=== PATIENT | female | born 1990 | race Two or more races ===

== ENCOUNTER 2016-05-24 11:26 | Emergency (ER) | payer OTHER ==
[2016-05-24] MEDS ORDERED: ASPIRIN 81 MG TABLET, CHEWABLE PO ONE (11:37)
--- NOTE | 2016-05-24 11:43 | ER Document Report ---
ED Medical Screen (RME) - General Stated Complaint: CHEST PAINS/SHORTNESS OF BREATH Time seen by provider: 11:39 Mode of Arrival: Ambulatory Information source: Patient Notes: 26-year-old female presents to ED for shortness of breath and chest pain. States that the chest pain has been off and on all week. Earlier in the week she said the chest pain was in the center yesterday the chest pain was on the left and felt like somebody had punched her. And today when she was sitting she felt like she couldn't breathe the chest pain was very bad that she took a deep breath and that she could breathe better. 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 States she also has numbness of the left arm and other places of her body. Has a history of asthma but her Advair and rescue inhaler have not helped. I have greeted and performed a rapid initial assessment of this patient. A comprehensive ED assessment and evaluation of the patient, analysis of test results and completion of medical decision making process will be conducted by an additional ED providers. - Related Data Allergies/Adverse Reactions: doxycycline Allergy (Verified 05/24/16 11:38) nitrofurantoin [From Macrobid] Allergy (Verified 05/24/16 11:38) Sulfa (Sulfonamide Antibiotics) Allergy (Verified 05/24/16 11:38) Physical Exam - Vital signs Vitals: Temp Pulse Resp BP Pulse Ox 98.7 F 74 18 176/80 H 99 05/24/16 11:05/24/16 11:05/24/16 11:05/24/16 11:29 05/24/16 11:29 Course - Vital Signs Vital signs: Temp Pulse Resp BP Pulse Ox 98.7 F 74 18 176/80 H 99 05/24/16 11:29 05/24/16 11:29 05/24/16 11:29 05/24/16 11:29 05/24/16 11:29
[2016-05-24 12:10] LABS: ABSOLUTE BASOPHILS # (AUTO) 0.1 10^3/uL (0.0-0.2); ABSOLUTE EOSINOPHILS # (AUTO) 0.1 10^3/uL (0.0-0.6); ABSOLUTE MONOCYTES (AUTO) 0.3 10^3/uL (0.1-1.4); ABSOLUTE NEUT (AUTO) 3.1 10^3/uL (1.7-8.2); BASOPHILS % (AUTO) 1.1 % (0-2); EOSINOPHILS % (AUTO) 2.1 % (0-6); HEMATOCRIT 43.1 % (36.0-47.0); HEMOGLOBIN 14.6 g/dL (12.0-15.5); HGB HCT DIFFERENCE 0.7; LYMPHOCYTES % (AUTO) 35.3 % (13-45); MEAN CORPUSCULAR HEMOGLOBIN 29.1 pg (27.0-33.4); MEAN CORPUSCULAR HGB CONC 33.9 g/dL (32.0-36.0); MEAN CORPUSCULAR VOLUME 86 fl (80-97); MONOCYTES % (AUTO) 6.1 % (3-13); RED BLOOD COUNT 5.01 10^6/uL (3.72-5.28); RED CELL DISTRIBUTION WIDTH 14.3 % (11.5-14.0); SEGMENTED NEUTROPHILS % (AUTO) 55.4 % (42-78); WHITE BLOOD COUNT 5.6 10^3/uL (4.0-10.5)
[2016-05-24 12:43] LABS: ALANINE AMINOTRANSFERASE 21 U/L (9-52); ALBUMIN 4.9 g/dL (3.5-5.0); ALKALINE PHOSPHATASE 56 U/L (38-126); ANION GAP 17 (5-19); ASPARTATE AMINO TRANSFERASE 22 U/L (14-36); BILIRUBIN,DIRECT 0.3 mg/dL (0.0-0.4); BILIRUBIN,TOTAL 1.4 mg/dL (0.2-1.3); BLOOD UREA NITROGEN 14 mg/dL (7-20); CALCIUM 10.7 mg/dL (8.4-10.2); CARBON DIOXIDE 22 mmol/L (22-30); CHLORIDE 105 mmol/L (98-107); CREATINE KINASE 86 U/L (30-135); CREATININE RESULT 0.74 mg/dL (0.52-1.25); GLUCOSE 118 mg/dL (75-110); MAGNESIUM 2.1 mg/dL (1.6-2.3); POTASSIUM 4.5 mmol/L (3.6-5.0); SODIUM 144.1 mmol/L (137-145); TOTAL PROTEIN 8.4 g/dL (6.3-8.2)
[2016-05-24 12:47] LABS: ADD ON TESTING BLD IN LAB ACKNOWLEDGE
[2016-05-24 12:57] LABS: CREATINE KINASE MB < 0.22 ng/mL (<4.55); TROPONIN I < 0.012 ng/mL
--- NOTE | 2016-05-24 12:57 | ER Document Report ---
ED Cardiac - General Chief Complaint: Chest Pain Stated Complaint: CHEST PAINS/SHORTNESS OF BREATH Mode of Arrival: Ambulatory Information source: Patient Notes: Patient reports a 10 day history of shortness of breath off and on with chest pain off and on for the past 5 days. Patient states that when she has the pain is sharp and shooting in nature. Patient does report some sinus congestion today. Patient denies any nausea or vomiting. Patient also reports random episodes of varying body parts that occasionally will be numb, but states she's had this off and on for years. Patient denies any family history of early heart disease or any personal history of heart disease. TRAVEL OUTSIDE OF THE [place] IN LAST 30 DAYS: No - HPI Patient complains to provider of: Chest pain, Shortness of breath Was the onset of pain: Sudden Chest pain location: Substernal Quality of pain: Sharp Severity now: None Severity at worst: Moderate Pain level currently: Denies Chest pain precipitating factors: At Rest Cardiac risk factors: denies: Diabetes, Hypertension, Smoker, + Family history, Dyslipidemia, Hx [place] Positive cardiac history: No Associated symptoms: Shortness of breath. denies: Abdominal pain, Back pain, Jaw pain, Nausea/vomiting Exacerbated by: Denies Relieved by: Nothing Similar symptoms previously: No Recently seen / treated by doctor: No - Related Data Allergies/Adverse Reactions: doxycycline Allergy (Verified 05/24/16 11:38) nitrofurantoin [From Macrobid] Allergy (Verified 05/24/16 11:38) Sulfa (Sulfonamide Antibiotics) Allergy (Verified 05/24/16 11:38) Past Medical History - General Information source: Patient Last Menstrual Period: 05/23/2016 - Social History Smoking Status: Never Smoker Chew tobacco use (# tins/day): No Frequency of alcohol use: None Drug Abuse: None Occupation: hvac maintenance technician Family History: Reviewed & Not Pertinent Patient has suicidal ideation: No Patient has homicidal ideation: No Pulmonary Medical History: Reports: Hx Asthma Renal/ Medical History: Denies: Hx Peritoneal Dialysis GI Medical History: Reports: Hx Gastroesophageal Reflux Disease Psychiatric Medical History: Reports: Hx Anxiety Surgical Hx: Negative - Immunizations Hx Diphtheria, Pertussis, Tetanus Vaccination: Yes Review of Systems - Review of Systems Constitutional: No symptoms reported. denies: Fever, Recent illness EENT: Nose congestion Cardiovascular: Chest pain Respiratory: Short of breath. denies: Cough, Sputum Gastrointestinal: No symptoms reported. denies: Abdominal pain, Nausea, Vomiting Genitourinary: Flank pain. denies: Dysuria, Hematuria Female Genitourinary: No symptoms reported Musculoskeletal: Back pain Skin: No symptoms reported Hematologic/Lymphatic: No symptoms reported Neurological/Psychological: No symptoms reported Physical Exam - Vital signs Vitals: Temp Pulse Resp BP Pulse Ox 98.7 F 74 18 176/80 H 99 05/24/16 11:29 05/24/16 11:29 05/24/16 11:29 05/24/16 11:29 05/24/16 11:29 - General General appearance: Appears well, Alert In distress: None - HEENT Head: Normocephalic, Atraumatic Eyes: Normal Nasal: Normal Mouth/Lips: Normal Mucous membranes: Normal Neck: Normal, Supple. No: Lymphadenopathy - Respiratory Respiratory status: No respiratory distress Chest status: Tender. No: Pain with cough Breath sounds: Normal. No: Rales, Rhonchi, Stridor, Wheezing Chest palpation: Tender - Cardiovascular Rhythm: Regular Heart sounds: S1 appreciated, S2 appreciated Murmur: No - Abdominal Inspection: Normal Distension: No distension Bowel sounds: Normal Tenderness: Nontender Organomegaly: No organomegaly - Back Back: CVA tenderness - Extremities General upper extremity: Normal inspection, Normal strength General lower extremity: Normal inspection, Normal strength - Neurological Neuro grossly intact: Yes Cognition: Normal [place] Coma Scale Eye Opening: Spontaneous [place] Coma Scale Verbal: Oriented [place] Coma Scale Motor: Obeys Commands [place] Coma Scale Total: 15 - Psychological Associated symptoms: Normal affect, Normal mood - Skin Skin Temperature: Warm Skin Moisture: Dry Skin Color: Normal Course - Re-evaluation Re-evalutation: 05/24/16 13:[address] Nieto regarding patient presentation and exam findings. No additional testing recommended. 05/24/16 13:45 The patient has atypical chest pain as the patient's chest pain is not suggestive of pulmonary embolus, cardiac ischemia, aortic dissection, or other serious etiology. Given the extremely low risk of these diagnoses for the test in evaluation for these possibilities does not appear to be indicated at this time. Patient has been instructed to return if the symptoms worsen or change in any way. Patient's heart score 0. 05/24/16 15:21 Patient continues without any chest pain this time. alarm security or surveillance monitor normal sinus rhythm in the 60s. Patient without any shortness of breath. Discussed worsening signs or symptoms that patient should return to medially for. Patient verbalized understanding and agrees with plan of care. Patient denies any dysuria symptoms. - Vital Signs Vital signs: Temp Pulse Resp BP Pulse Ox 98.7 F 74 18 131/87 H 100 05/24/16 11:29 05/24/16 11:29 05/24/16 15:20 05/24/16 15:20 05/24/16 15:20 - Laboratory Result Diagrams: 05/24/16 11:53 05/24/16 11:53 Laboratory results interpreted by me: 05/24/16 05/24/16 05/24/16 11:53 11:53 14:10 RDW 14.3 H Glucose 118 H Calcium 10.7 H Total Bilirubin 1.4 H Total Protein 8.4 H Urine Blood SMALL H 05/24/16 15:22 Labs- Entire Visit 05/24/16 05/24/16 05/24/16 11:53 11:53 11:53 WBC 5.6 RBC 5.01 Hgb 14.6 Hct 43.1 MCV 86 MCH 29.1 MCHC 33.9 RDW 14.3 H Plt Count 251 Seg Neutrophils % 55.4 Lymphocytes % 35.3 Monocytes % 6.1 Eosinophils % 2.1 Basophils % 1.1 Absolute Neutrophils 3.1 Absolute Lymphocytes 2.0 Absolute Monocytes 0.3 Absolute Eosinophils 0.1 Absolute Basophils 0.1 Sodium 144.1 Potassium 4.5 Chloride 105 Carbon Dioxide 22 Anion Gap 17 BUN 14 Creatinine 0.74 Est GFR ( Amer) > 60 Est GFR (Non-Af Amer) > 60 Glucose 118 H Calcium 10.7 H Magnesium 2.1 Total Bilirubin 1.4 H Direct Bilirubin 0.3 Indirect Bilirubin Not Reportable Neonat Total Bilirubin Not Reportable AST 22 ALT 21 Alkaline Phosphatase 56 Creatine Kinase 86 CK-MB (CK-2) < 0.22 Troponin I < 0.012 Total Protein 8.4 H Albumin 4.9 Lipase Serum HCG, Qual Urine Color Urine Appearance Urine pH Ur Specific Banks Urine Protein Urine Glucose (UA) Urine Ketones Urine Blood Urine Nitrite Urine Bilirubin Urine Urobilinogen Ur Leukocyte Esterase Urine WBC (Auto) Urine RBC (Auto) Squamous Epi Cells Auto Urine Ascorbic Acid 05/24/16 05/24/16 05/24/16 11:53 11:53 14:10 WBC RBC Hgb Hct MCV MCH MCHC RDW Plt Count Seg Neutrophils % Lymphocytes % Monocytes % Eosinophils % Basophils % Absolute Neutrophils Absolute Lymphocytes Absolute Monocytes Absolute Eosinophils Absolute Basophils Sodium Potassium Chloride Carbon Dioxide Anion Gap BUN Creatinine Est GFR ( Amer) Est GFR (Non-Af Amer) Glucose Calcium Magnesium Total Bilirubin Direct Bilirubin Indirect Bilirubin Neonat Total Bilirubin AST ALT Alkaline Phosphatase Creatine Kinase CK-MB (CK-2) Troponin I Total Protein Albumin Lipase 156.7 Serum HCG, Qual NEGATIVE Urine Color STRAW Urine Appearance CLEAR Urine pH 7.0 Ur Specific [place] 1.005 Urine Protein NEGATIVE Urine Glucose (UA) NEGATIVE Urine Ketones NEGATIVE Urine Blood SMALL H Urine Nitrite NEGATIVE Urine Bilirubin NEGATIVE Urine Urobilinogen NEGATIVE Ur Leukocyte Esterase NEGATIVE Urine WBC (Auto) 0 Urine RBC (Auto) 0 Squamous Epi Cells Auto <1 Urine Ascorbic Acid NEGATIVE 05/24/16 18:37 - Diagnostic Test Radiology reviewed: Reports reviewed - EKG Interpretation by Ms EKG shows normal: Sinus rhythm Rate: Normal Discharge - Discharge Clinical Impression: Flank pain Chest pain Qualifiers: Chest pain type: unspecified Qualified Code(s): R07.9 - Chest pain, unspecified Condition: Stable Disposition: HOME, SELF-CARE Instructions: Chest Pain of Unclear Cause ([facility]), Reflux Disease (GERD) ([facility]), Flank Pain ([facility]) Additional Instructions: Return immediately for any new or worsening symptoms Followup with your primary care provider, call tomorrow to make a followup appointment Follow up with a boatbuilder apprentice wood for further evaluation of your chest pain Prescriptions: Naproxen [Naprosyn 250 Nmg Tablet] 1 tab PO BID #14 tablet Omeprazole Magnesium [Prilosec Otc] 20 mg PO DAILY #15 tablet. Sucralfacatia [Carafate 1 gm Tablet] 1 gm PO ACHS PRN #40 tablet PRN Reason: Forms: Return to Work Referrals: [facility] [Provider Group] - Follow up tomorrow COLEMAN BOLDEN MD [ACTIVE STAFF] - Follow up in 3-5 days
[2016-05-24 13:04] LABS: LIPASE 156.7 U/L (23-300)
[2016-05-24 14:41] LABS: APPEARANCE,URINE CLEAR; BILIRUBIN,URINE NEGATIVE (NEGATIVE); GLUCOSE, URINE NEGATIVE (NEGATIVE); KETONES,URINE NEGATIVE (NEGATIVE); LEUKOCYTE ESTERASE,URINE NEGATIVE (NEGATIVE); NITRITE,URINE NEGATIVE (NEGATIVE); PROTEIN,URINE NEGATIVE (NEGATIVE); URINE SPECIFIC GRAVITY 1.005; UROBILINOGEN,URINE NEGATIVE mg/dL (<2.0)
[2016-05-24 15:31] VITALS: BP 131/87
--- NOTE | 2016-05-24 20:45 | EKG REPORT ---
SEVERITY:- NORMAL ECG - SINUS RHYTHM : Confirmed by: Toni Rodriguez 24-May-2016 20:44:48
== END 2016-05-24 15:38 | disposition home or self-care (01) ==
LOC: ER 11:26
DX: R07.9 Chest pain, unspecified (principal); R10.9 Unspecified abdominal pain; R06.02 Shortness of breath
CPT/HCPCS: 36415; 71020; 80053; 81001; 82550; 82553; 83690; 83735; 84484; 84703; 85025; 93005; 93010; 99285

== ENCOUNTER 2017-03-05 09:00 | Outpatient (CLI) | payer OTHER ==
[2017-03-05 09:50] LABS: ABSOLUTE EOSINOPHILS # (AUTO) 0.2 10^3/uL (0.0-0.6); ABSOLUTE LYMPHOCYTES (AUTO) 1.9 10^3/uL (0.5-4.7); ABSOLUTE MONOCYTES (AUTO) 0.6 10^3/uL (0.1-1.4); ABSOLUTE NEUT (AUTO) 4.2 10^3/uL (1.7-8.2); BASOPHILS % (AUTO) 0.7 % (0-2); EOSINOPHILS % (AUTO) 3.4 % (0-6); HEMOGLOBIN 11.1 g/dL (12.0-15.5); LYMPHOCYTES % (AUTO) 27.7 % (13-45); MEAN CORPUSCULAR HEMOGLOBIN 23.5 pg (27.0-33.4); MEAN CORPUSCULAR HGB CONC 31.7 g/dL (32.0-36.0); MEAN CORPUSCULAR VOLUME 74 fl (80-97); MONOCYTES % (AUTO) 8.4 % (3-13); PLATELET COUNT 215 10^3/uL (150-450); RED BLOOD COUNT 4.72 10^6/uL (3.72-5.28); RED CELL DISTRIBUTION WIDTH 19.5 % (11.5-14.0); SEGMENTED NEUTROPHILS % (AUTO) 59.8 % (42-78); TOTAL CELLS COUNTED % (AUTO) 100 %
[2017-03-05 09:52] LABS: APPEARANCE,URINE CLEAR; BILIRUBIN,URINE NEGATIVE (NEGATIVE); COLOR,URINE STRAW; GLUCOSE, URINE NEGATIVE (NEGATIVE); KETONES,URINE NEGATIVE (NEGATIVE); LEUKOCYTE ESTERASE,URINE NEGATIVE (NEGATIVE); NITRITE,URINE NEGATIVE (NEGATIVE); PROTEIN,URINE NEGATIVE (NEGATIVE); URINE SPECIFIC GRAVITY 1.006; UROBILINOGEN,URINE NEGATIVE mg/dL (<2.0)
[2017-03-05 10:03] LABS: URINE AMPHETAMINES SCREEN NEGATIVE; URINE BARBITURATES SCREEN NEGATIVE; URINE BENZODIAZEPINES SCREEN NEGATIVE; URINE COCAINE SCREEN NEGATIVE; URINE MARIJUANA (THC) SCREEN NEGATIVE; URINE METHADONE SCREEN NEGATIVE; URINE PHENCYCLIDINE SCREEN NEGATIVE
[2017-03-05 10:08] LABS: ALANINE AMINOTRANSFERASE 19 U/L (9-52); ALBUMIN 3.6 g/dL (3.5-5.0); ALKALINE PHOSPHATASE 168 U/L (38-126); ANION GAP 10 (5-19); ASPARTATE AMINO TRANSFERASE 23 U/L (14-36); BILIRUBIN,DIRECT 0.2 mg/dL (0.0-0.4); BILIRUBIN,TOTAL 0.4 mg/dL (0.2-1.3); BLOOD UREA NITROGEN 11 mg/dL (7-20); CARBON DIOXIDE 20 mmol/L (22-30); CHLORIDE 107 mmol/L (98-107); GLUCOSE 79 mg/dL (75-110); LDH 444 U/L (313-618); POTASSIUM 4.1 mmol/L (3.6-5.0); SODIUM 137.1 mmol/L (137-145); TOTAL PROTEIN 6.4 g/dL (6.3-8.2); URIC ACID 3.6 mg/dL (2.5-6.2)
[2017-03-05 10:11] LABS: UR PRO/CREAT RATIO RESULT 0.3 mg/mg (0.0-0.2); URINE CREATININE 51.9 mg/dL (16-327); URINE PROTEIN 16.9 mg/dL (<12)
== END 2017-03-05 10:30 | disposition home or self-care (01) ==
LOC: LC 09:00
PROVIDERS: ATTEND Obstetrics & Gynecology
PROC: 4A1HXCZ Monitoring of Products of Conception, Cardiac Rate, External Approach (ICD-10-PCS; principal; 2017-03-05)
DX: O47.1 False labor at or after 37 completed weeks of gestation (principal); Z3A.38 38 weeks gestation of pregnancy
CPT/HCPCS: 36415; 59025; 80053; 80307; 81001; 82570; 83615; 84156; 84550; 85025

== ENCOUNTER 2017-03-06 13:50 | Outpatient (CLI) | payer OTHER | END 2017-03-06 15:25 | disposition home or self-care (01) | LOC: LC 13:50 | PROVIDERS: ATTEND Advanced Practice Midwife | PROC: 4A1HXCZ Monitoring of Products of Conception, Cardiac Rate, External Approach (ICD-10-PCS; principal; 2017-03-06) | DX: O12.13 Gestational proteinuria, third trimester (principal); Z3A.38 38 weeks gestation of pregnancy | CPT/HCPCS: 59025 ==

== ENCOUNTER → 2017-03-06 | Outpatient (CLI) | payer OTHER ==
[2017-03-06 15:09] LABS: 24 HOUR URINE PROTEIN RESULT 198 mg/day (42-225); URINE PROTEIN 15.2 mg/dL (<12)
== END ==
LOC: LAB 13:48
PROVIDERS: ATTEND Advanced Practice Midwife
DX: O12.10 Gestational proteinuria, unspecified trimester (principal)
CPT/HCPCS: 84156

== ENCOUNTER 2017-03-12 08:43 | Outpatient (CLI) | payer OTHER ==
--- NOTE | 2017-03-12 09:41 | Non Stress Test Report ---
Non Stress Test Datetime Report Generated by CPN: 03/12/2017 09:41 DEMOGRAPHIC EGA NST: 39.4 INDICATION Indication for Study: Ordered by Provider MONITORING Monitor Explained: Monitor Explained; Test Explained; Patient Verbalized Understanding Time on Monitor: 03/12/2017 09:00 Time off Monitor: 03/12/2017 09:36 NST Duration: 36 NST INTERVENTIONS NST Interventions: PO Hydration Physician Notified NST: C Caldwell CNM BABY A: [id number] BABY A Movement : Present Contraction Frequency : rare FHR Baseline : 130 Accelerations : 15X15 Decelerations : None Variability : Moderate 6-25bpm NST Review: Meets Criteria for Reactive NST NST Review and Verified By : Tyrone Cruz RNC NST Results: Reactive NST REPORT Report Trigger: Send Report
[2017-03-12 10:20] LABS: APPEARANCE,URINE CLOUDY; BILIRUBIN,URINE NEGATIVE (NEGATIVE); COLOR,URINE YELLOW; GLUCOSE, URINE NEGATIVE (NEGATIVE); KETONES,URINE NEGATIVE (NEGATIVE); LEUKOCYTE ESTERASE,URINE NEGATIVE (NEGATIVE); NITRITE,URINE NEGATIVE (NEGATIVE); PROTEIN,URINE NEGATIVE (NEGATIVE); UROBILINOGEN,URINE NEGATIVE mg/dL (<2.0)
[2017-03-12 10:35] LABS: ALANINE AMINOTRANSFERASE 23 U/L (9-52); ALBUMIN 3.4 g/dL (3.5-5.0); ALKALINE PHOSPHATASE 165 U/L (38-126); ANION GAP 9 (5-19); ASPARTATE AMINO TRANSFERASE 27 U/L (14-36); BILIRUBIN,DIRECT 0.2 mg/dL (0.0-0.4); BILIRUBIN,TOTAL 0.5 mg/dL (0.2-1.3); BLOOD UREA NITROGEN 13 mg/dL (7-20); CALCIUM 9.9 mg/dL (8.4-10.2); CARBON DIOXIDE 22 mmol/L (22-30); CHLORIDE 108 mmol/L (98-107); GLUCOSE 69 mg/dL (75-110); POTASSIUM 4.3 mmol/L (3.6-5.0); SODIUM 138.8 mmol/L (137-145); TOTAL PROTEIN 6.1 g/dL (6.3-8.2)
[2017-03-12 10:38] LABS: URINE AMPHETAMINES SCREEN NEGATIVE; URINE BARBITURATES SCREEN NEGATIVE; URINE BENZODIAZEPINES SCREEN NEGATIVE; URINE COCAINE SCREEN NEGATIVE; URINE MARIJUANA (THC) SCREEN NEGATIVE; URINE METHADONE SCREEN NEGATIVE; URINE PHENCYCLIDINE SCREEN NEGATIVE
== END 2017-03-12 12:53 | disposition home or self-care (01) ==
LOC: LC 08:43
PROVIDERS: ATTEND Student in an Organized Health Care Education/Training Program
PROC: 4A1HXCZ Monitoring of Products of Conception, Cardiac Rate, External Approach (ICD-10-PCS; principal; 2017-03-12)
DX: O36.8130 Decreased fetal movements, third trimester, not applicable or unspecified (principal); Z3A.39 39 weeks gestation of pregnancy
CPT/HCPCS: 36415; 59025; 80053; 80307; 81005; 82239

== ENCOUNTER 2017-03-14 15:11 | Inpatient (IN) | payer OTHER ==
[2017-03-14 15:36] LABS: AMNISURE (ROM) POSITIVE (NEGATIVE); APPEARANCE,URINE CLEAR; BILIRUBIN,URINE NEGATIVE (NEGATIVE); COLOR,URINE STRAW; GLUCOSE, URINE NEGATIVE (NEGATIVE); KETONES,URINE NEGATIVE (NEGATIVE); LEUKOCYTE ESTERASE,URINE NEGATIVE (NEGATIVE); NITRITE,URINE NEGATIVE (NEGATIVE); PROTEIN,URINE NEGATIVE (NEGATIVE); URINE SPECIFIC GRAVITY 1.003; UROBILINOGEN,URINE NEGATIVE mg/dL (<2.0)
[2017-03-14] MEDS ORDERED: RINGERS SOLUTION,LACTATED 300 ML IV ONE (15:39)
[2017-03-14 15:54] LABS: URINE AMPHETAMINES SCREEN NEGATIVE; URINE BARBITURATES SCREEN NEGATIVE; URINE BENZODIAZEPINES SCREEN NEGATIVE; URINE COCAINE SCREEN NEGATIVE; URINE MARIJUANA (THC) SCREEN NEGATIVE; URINE METHADONE SCREEN NEGATIVE; URINE PHENCYCLIDINE SCREEN NEGATIVE
[2017-03-14 16:06] LABS: ABSOLUTE EOSINOPHILS # (AUTO) 0.1 10^3/uL (0.0-0.6); ABSOLUTE LYMPHOCYTES (AUTO) 1.9 10^3/uL (0.5-4.7); ABSOLUTE MONOCYTES (AUTO) 0.6 10^3/uL (0.1-1.4); ABSOLUTE NEUT (AUTO) 3.6 10^3/uL (1.7-8.2); BASOPHILS % (AUTO) 0.8 % (0-2); EOSINOPHILS % (AUTO) 1.9 % (0-6); HEMATOCRIT 34.9 % (36.0-47.0); LYMPHOCYTES % (AUTO) 30.1 % (13-45); MEAN CORPUSCULAR HEMOGLOBIN 23.5 pg (27.0-33.4); MEAN CORPUSCULAR HGB CONC 31.6 g/dL (32.0-36.0); MEAN CORPUSCULAR VOLUME 74 fl (80-97); MONOCYTES % (AUTO) 9.3 % (3-13); PLATELET COUNT 241 10^3/uL (150-450); RED BLOOD COUNT 4.69 10^6/uL (3.72-5.28); RED CELL DISTRIBUTION WIDTH 20.3 % (11.5-14.0); SEGMENTED NEUTROPHILS % (AUTO) 57.9 % (42-78); TOTAL CELLS COUNTED % (AUTO) 100 %; WHITE BLOOD COUNT 6.3 10^3/uL (4.0-10.5)
[2017-03-14] MEDS ORDERED: OXYTOCIN/NORMAL SALINE 20 UNIT/1,000 ML RTUINJ IV PRN (16:36)
[2017-03-14] MEDS ORDERED: MISOPROSTOL 0.2 MG TABLET ONE (18:03)
[2017-03-14] MEDS ORDERED: LIDOCAINE 1% INJ-PF (10 MG/ML) 30 ML SDV ONE (18:03)
[2017-03-14] MEDS ORDERED: OXYTOCIN/NORMAL SALINE 20 UNIT/1,000 ML RTUINJ ONE (18:03)
[2017-03-14] MEDS: RINGERS SOLUTION,LACTATED 1,000 ML IV PRN (18:10)
[2017-03-14] MEDS ORDERED: MAG HYDROX/AL HYDROX/SIMETH SUSP 30 ML UDCUP ONE (19:50)
[2017-03-14] MEDS ORDERED: MAG HYDROX/AL HYDROX/SIMETH SUSP 30 ML UDCUP PO ONE (19:51)
[2017-03-15] MEDS ORDERED: EPHEDRINE SULFATE INJ 50 MG/1 ML AMPULE ONE ×2 (00:54→19:04)
[2017-03-15] MEDS ORDERED: BUPIVACAINE HCL 0.25 % INJ/PF (2.5 MG/1 ML) 30 ML VIAL ONE (00:54)
[2017-03-15] MEDS ORDERED: FENTANYL/BUPIVACAINE/NS/PF 200 MCG/100 ML RTUINJ EPI ONE ×2 (00:54→10:18)
[2017-03-15] MEDS ORDERED: VALACYCLOVIR HCL 500 MG TABLET ONE (07:54)
[2017-03-15] MEDS ORDERED: DEXTROSE 5%-LACTATED RINGERS 1,000 ML IV PRN (07:56)
[2017-03-15] MEDS: RINGERS SOLUTION,LACTATED 1,000 ML IV PRN (08:20)
[2017-03-15] MEDS ORDERED: VALACYCLOVIR HCL 500 MG TABLET PO ONE (08:30)
[2017-03-15] MEDS ORDERED: AMPICILLIN SOD INJ 2 GM VIAL ONE ×2 (08:58→14:40)
[2017-03-15] MEDS ORDERED: GENTAMICIN SULFATE 120 MG in DEXTROSE 5%-WATER 100 ML IV ONE (09:30)
--- NOTE | 2017-03-15 09:57 | L&D Progress Notes ---
PROGRESS NOTES Datetime Report Generated by CPN: 03/15/2017 09:56 PROGRESS NOTE Impression: Normal Progression of Labor Procedures- Other: begin pitocin again, begin abx Plan: Induction Informed Consent Obtained: Vaginal Delivery; Induction of Labor; Risks, Benefits and Alternatives Discussed Vital Signs : Reviewed Comment: Pt admitted to PROM at term and pitocin inititated last PM due to PROM. Abx started due to prolonged PROM Amp/Gent. Pt has epidural in place and is comfortable. Cvx 9/c/+1. Anticipate VAGINAL EXAM Dilatation: 9 Dilatation: 1 Effacement: 100 Effacement: 50 Station: 1 Station: -3 Contractions: q 2-3 Contractions: irregular MEMBRANES Membranes: Ruptured FETUS A FHR - Baseline: 125 Monitoring: External US Variability: Moderate 6-25bpm Accelerations: 15X15 Decelerations: Early FHR Category: Category II Estimated Weight (gm): 3100 Presentation: Vertex SIGNATURE SIGNATURE: [id number] SIGNATURE: [id number] SIGNATURE: [id number] Signature: with User ID: [email or web address]
[2017-03-15] MEDS ORDERED: ACETAMINOPHEN 325 MG TABLET ONE (13:17)
[2017-03-15] MEDS ORDERED: ACETAMINOPHEN 325 MG TABLET PO ONE (15:00)
--- NOTE | 2017-03-15 16:01 | L&D Progress Notes ---
PROGRESS NOTES Datetime Report Generated by CPN: 03/15/2017 16:01 PROGRESS NOTE Plan: Continue Present Management; Induction Comment: pushing since 1420. station still +1 with caput. c/w Dr Santos and Dr Santos in to assess pt. continue pushing VAGINAL EXAM Dilatation: c Effacement: c Station: 1 Contractions: q3 mins FETUS A FHR - Baseline: 135 Variability: Moderate 6-25bpm Decelerations: Early FHR Category: Category I FETUS C SIGNATURE: [id number];[id number] Assignment: Ariadne Graham MD Signature: with User ID: [email or web address] : with User ID: [email or web address]
[2017-03-15] MEDS ORDERED: WATER IV SCH (18:00)
[2017-03-15] MEDS ORDERED: DEXTROSE 5% IV SCH (18:00)
[2017-03-15] MEDS ORDERED: GENTAMICIN SULFATE IV SCH (18:00)
[2017-03-15] MEDS ORDERED: LIDOCAINE 2%/EPINEPHRINE INJ 20 ML VIAL ONE (18:51)
[2017-03-15] MEDS ORDERED: SODIUM BICARBONATE 8.4% INJ 50 MEQ/50 ML DISP.SYRIN ONE (18:51)
[2017-03-15] MEDS ORDERED: CITRIC ACID/SODIUM CITRATE ORAL SOLN 15 ML UDCUP ONE (18:56)
[2017-03-15] MEDS ORDERED: CEFAZOLIN 1 GM/D5W RTU 1 GM/50 ML RTUPB IV ONE (18:56)
[2017-03-15] MEDS ORDERED: ONDANSETRON HCL INJ/PF 4 MG/2 ML SDV ONE (19:04)
[2017-03-15] MEDS ORDERED: MIDAZOLAM 2 MG/2 ML INJ ONE (19:04)
[2017-03-15] MEDS ORDERED: FENTANYL CITRATE INJ/PF 100 MCG/2 ML AMPUL ONE ×2 (19:04→20:50)
[2017-03-15] MEDS ORDERED: OXYTOCIN 10 UNIT/ML VIAL ONE (19:05)
[2017-03-15] MEDS ORDERED: CARBOPROST TROMETHAMINE INJ 250 MCG/1 ML AMPULE ONE (19:05)
[2017-03-15] MEDS ORDERED: ACETAMINOPHEN 100 ML IV ONE (19:05)
--- NOTE | 2017-03-15 19:06 | L&D Progress Notes ---
PROGRESS NOTES Datetime Report Generated by CPN: 03/15/2017 19:06 PROGRESS NOTE Impression: Arrest of Dilatation/Descent Procedures: Sterile Vag Exam Plan: Deliver- Section Informed Consent Obtained: Section Delivery; Risks, Benefits and Alternatives Discussed Vital Signs : Reviewed Vital Signs Comments: mild high BPs with pushing Comment: Pt has now been pushing for 4 hours. Attempted Forceps with 4 push/pulls with moderate descent of the baby at approx [phone] - OP presentation. FOrceps removed due to poor maternal effort with foceps. patient epidural turned off and effort improved. However, head with poor descent and minimal effort despite c/c/+2 to 3 station. Reviewed options with patient due to Arrest of descent. Pt desires to proceed with cesrean section. FETUS C SIGNATURE: [id number];[id number] Signature: with User ID: [email or web address]
[2017-03-15] MEDS: AMPICILLIN SODIUM 2 GM in NORMAL SALINE 100 ML IV SCH ×2 (19:23→22:16)
[2017-03-15] MEDS ORDERED: MISOPROSTOL 0.2 MG TABLET ONE (19:47)
[2017-03-15] MEDS ORDERED: METHYLERGONOVINE MALEATE INJ/PF 0.2 MG/1 ML AMPULE ONE (19:48)
[2017-03-15] MEDS ORDERED: MORPHINE SULFATE 10 MG/ML INJ IV PRN (20:11)
[2017-03-15] MEDS ORDERED: DIPHENHYDRAMINE HCL 50 MG/ML VIAL IV PRN (20:11)
[2017-03-15] MEDS ORDERED: FENTANYL CITRATE INJ/PF 100 MCG/2 ML AMPUL IV PRN ×2 (20:11)
[2017-03-15] MEDS ORDERED: MEPERIDINE HCL/PF INJ 25 MG/1 ML DISP.SYRIN IV PRN (20:11)
[2017-03-15] MEDS ORDERED: PROMETHAZINE HCL INJ 25 MG/1 ML VIAL IV PRN ×3 (20:11→20:46)
[2017-03-15] MEDS ORDERED: OXYCODONE-ACETAMINOPHEN 5-325 MG TABLET PO PRN ×2 (20:11)
--- NOTE | 2017-03-15 20:45 | Brief Operative Note ---
BRIEF OPERATIVE REPORT DATE OF SURGERY: 03/15/17 TIME OF SURGERY: 20:00 PREOPERATIVE DIAGNOSIS: Arrest of Descent, 40+0ega, PPROM, POSTOPERATIVE DIAGNOSIS: D[place] delivered SURGEON: STACEY CHINCHILLA FINDINGS: Normal bilateral tubes and ovaries, normal uterus, baby asynclitic and OP. VMI with apgars 4/7/7. Weight pending 6#3oz. Time of 1940. 1000ml IVF, 100ml UOP. Poor uterine tone responded with Intrauterine methergine and intrauterine pitocin. Cytotec 1000mcg given postop per rectum COMPLICATIONS: None ESTIMATED BLOOD LOSS: 600ml TISSUE REMOVED OR ALTERED: placenta and cord TECHNICAL PROCEDURE: Primary LTCS
[2017-03-15] MEDS ORDERED: OXYTOCIN/NORMAL SALINE 20 UNIT/1,000 ML RTUINJ IV PRN (20:46)
[2017-03-15] MEDS ORDERED: HYDROMORPHONE HCL INJ/PF 2 MG/ML AMPULE IV PRN (20:46)
[2017-03-15] MEDS ORDERED: DIPH/PERTUSS(ACELL)/TETANUS VAC/PF 0.5 ML SYR (>=10YO) IM PRN (20:46)
[2017-03-15] MEDS ORDERED: MEASLES,MUMPS&RUBELLA VACC/PF 0.5 ML VIAL SUBCUT PRN (20:46)
[2017-03-15] MEDS ORDERED: ACETAMINOPHEN 100 ML IV PRN (20:46)
[2017-03-15] MEDS ORDERED: ACETAMINOPHEN 325 MG TABLET PO PRN (20:46)
[2017-03-15] MEDS ORDERED: SIMETHICONE 80 MG TAB.CHEW PO PRN (20:46)
[2017-03-15] MEDS ORDERED: MEPERIDINE HCL/PF INJ 25 MG/1 ML DISP.SYRIN ONE (20:50)
--- NOTE | 2017-03-15 21:55 | Delivery Summary ---
Del Sum A-C Datetime Report Generated by CPN: 03/15/2017 21:55 DELIVERY PERSONNEL DELIVERY PERSONNEL: [id number] Delivery Doctor:: Ariadne Graham MD Anesthesiologist:: Irma Cardoza MD FORMING YARDAGE CONTROL OPERATOR:: Zita Dang FORMING YARDAGE CONTROL OPERATOR Labor and Delivery Nurse:: Deepthi Ford RNsenior electrical design engineer Nurse:: Petrona Og RN Neonatal Nurse Practitioner:: DAHLIA Villalta Nursery Nurse:: Jovita Cruz RN Pantograph Ii Engraver/ADMINISTRATIVE OFFICE CLERK: Lesli Agee Pantograph Ii Engraver/ADMINISTRATIVE OFFICE CLERK: Neelima Sylvester, SUPERVISOR PYROTECHNIC LOADING Additional Personnel: : Shahrzad Park CNA MATERNAL INFORMATION Delivery Anesthesia: Epidural Medications After Delivery: Pitocin Drip 20 Units/1000ml NSS; Methergine 0.2mg IM; Other-Please Comment Meds After Delivery Comment: Cytotec 1000 mcg MI Estimated Blood Loss (ml): 600 Maternal Complications: Premature Rupture of Membranes LABOR SUMMARY EDC: 03/15/2017 00:00 No. Babies in Womb: 0 Attempted: No Labor Anesthesia: Epidural LABOR INFORMATION Reason for Induction: Not Applicable Onset of Labor: 03/14/2017 15:30 Complete Dilatation: 03/15/2017 12:29 Oxytocin: Augmentation Group B Beta Strep: Negative Steroids Given: None Reason Steroids Not Administered: Not Applicable MEMBRANES Membranes Rupture Method: Spontaneous Rupture of Membranes: 03/13/2017 23:00 Length of Rupture (hr): 44.67 STAGES OF LABOR Stage 1 hr: 20 Stage 1 min: 59 Stage 2 hr: 7 Stage 2 min: 11 Stage 3 hr: 0 Stage 3 min: 1 Total Time in Labor hr: 28 Total Time in Labor min: 11 VAGINAL DELIVERY Episiotomy: None Laceration #1: None Laceration Extension #1: N/A Sponge Count Correct: N/A CSECTION DELIVERY Primary Indication: Arrest of Descent CSection Urgency: Non-Scheduled CSection Incidence: Primary Labor: Labor Elective: Nonelective CSection Incision: Lower Uterine Transverse BABY A INFORMATION Delivery Date/Time: 03/15/2017 19:40 Method of Delivery: Born in Route : No : N/A Forceps: Failed Vacuum Extraction: N/A Shoulder Dystocia : No PRESENTATION/POSITION BABY A Presentation: Cephalic Cephalic Presentation: Vertex Vertex Position: OP Breech Presentation: N/A PLACENTA INFORMATION BABY A Placenta Delivery Time : 03/15/2017 19:41 Placenta Method of Delivery: Manual Removal Placenta Status: Delivered SCORES BABY A Heart Rate 1 min: >100 bpm Resp Effort 1 min: Slow, Irregular Reflex Irritability 1 min: No Response Muscle Tone 1 min: Flaccid Color 1 min: Body [place], Extremities Blue Resuscitation Effort 1 min: Tactile Stimulation SCORE 1 MIN: 4 Heart Rate 5 min: >100 bpm Resp Effort 5 min: Good Cry Reflex Irritability 5 min: Grimace Muscle Tone 5 min: Some Flexion of Extremities Color 5 min: Body [place], Extremities Blue SCORE 5 MIN: 7 INFANT INFORMATION BABY A Gestational Age at Delivery: 40.0 Gestational Status: Full Term- 39- 40.6 Weeks Infant Outcome : Liveborn Infant Condition : Stable Infant Sex: Male IDENTIFICATION BABY A Infant Verification Date/Time: 03/15/2017 19:50 Mother's Name Verified: Yes RN Verifying Infant: KFady Hinesco, RN Additional Verifying Personnel: Cole ParkSANDEEP WEIGHT/LENGTH BABY A Infant Birthweight (gm): 2815 Weight (lb): 6 Infant Weight (oz): 3 Length (in): 21.00 Infant Length (cm): 53.34 CORD INFORMATION BABY A No. Cord Vessels: 3 Nuchal Cord : N/A Cord Blood Taken: Yes-For Storage (Mom's Blood type +) Infant Suction: Mouth; Nose ASSESSMENT BABY A Physical Findings at Delivery: Caput Succedaneum; Other Physical Findings- Other: Poor tone Respirations: Grunting Skin to Skin: No Care By: Nyla RN Transferred To: Nursery BABY B INFORMATION : N/A SIGNATURES : I was personally available for consultation and serving as supervising physician for the [facility].
[2017-03-15] MEDS: FENTANYL CITRATE INJ/PF 100 MCG/2 ML AMPUL IV PRN ×3 (22:21→22:23)
--- NOTE | 2017-03-15 22:58 | Admission Physical ---
Datetime Report Generated by CPN: 03/15/2017 22:58 CURRENT ADMISSION Hx Assessment: The History has been Reviewed and is Current Chief Complaint: Suspected Ruptured Membranes Indication for Induction: Not Applicable Indication for Induction: Term, Intrauterine ; No Active Labor; Ruptured Membranes Admit Plan: Admit to Unit; Initiate Labor Augmentation Protocol ALLERGIES Medication Allergies: Yes Medication Allergies: Sulfa (Sulfonamide Antibiotics) (03/14/2017); doxycycline (03/14/2017); nitrofurantoin (03/14/2017) Medication Allergies: Sulfa (Sulfonamide Antibiotics) (03/12/2017); doxycycline (03/12/2017); nitrofurantoin (03/12/2017) Medication Allergies: Sulfa (Sulfonamide Antibiotics) (03/06/2017); doxycycline (03/06/2017); nitrofurantoin (03/06/2017) Medication Allergies: Sulfa (Sulfonamide Antibiotics) (03/05/2017); doxycycline (03/05/2017); nitrofurantoin (03/05/2017) Medication Allergies: Sulfa (Sulfonamide Antibiotics) (05/24/2016); doxycycline (05/24/2016); nitrofurantoin (05/24/2016) Latex: No Latex Allergies OBSTETRICAL HISTORY EDC: 03/15/2017 00:00 : 1 Para: 0 Term: 0 : 0 SAB: 0 IAB: 0 Ectopic: 0 Livin Cesareans: 0 VBACs: 0 Multiple Births: 0 Gestational Diabetes: No Rh Sensitization: No Incompetent Cervix: No ARASH: No Infertility: No ART Treatment: No Uterine Anomaly: No IUGR: No Hx Previous C/S: No Macrosomia: No Hx Loss/Stillborn: No PIH: No Hx : No Placenta Previa/Abruption: No Depression/PP Depression: No PTL/PROM: No Post Hemorrhage: No Current Procedures: Ultrasound; NST Obstetrical History Comments: G1 current SEE RECORDS Alcohol: No Marijuana : No Cocaine: No Other Illicit Drugs: No Cigarettes: Never Smoker. [id number] MEDICAL HISTORY Diabetes: No Blood Transfusion: No Pulmonary Disease (Asthma, TB): No Breast Disease: No Hypertension: No Hand Violin Maker Surgery: No Heart Disease: No Hosp/Surgery: No Autoimmune Disorder: No Anesthetic Complications: No Kidney Disease: No Abnormal Pap Smear: No Neuro/Epilepsy: No Psychiatric Disorders: No Other Medical Diseases: No Hepatitis/Liver Disease: No Significant Family History: No Varicosities/Phlebitis: No Trauma/Violence : No Thyroid Dysfunction: No INFECTIOUS HISTORY Gonorrhea: No Genital Herpes: Yes Chlamydia: No Tuberculosis: No Syphilis: No Hepatitis: No HIV/AIDS Exposure: No Rash or Viral Illness: No HPV: No Infectious History Comments: last outbreak in 2016 PHYSICAL EXAM General: Normal HEENT: Normal Neurologic: Normal Thyroid: Normal Heart: Normal Lungs: Normal Breast: Normal Back: Normal Abdomen: Normal Genitourinary Exam: Normal Extremities: Normal DTRs: Normal Pelvic Type: Adequate Vital Signs: Reviewed VAGINAL EXAM Dilatation: c Dilatation: 9 Dilatation: 1 Effacement: c Effacement: 100 Effacement: 50 Station: 1 Station: 1 Station: -3 Contraction Comments: q3 mins Contraction Comments: q 2-3 Contraction Comments: irregular MEMBRANES Membranes: Ruptured FETUS A EGA: 39.6 Monitoring: External US FHR- Baseline: 135 Variability: Moderate 6-25bpm Accelerations: 15X15 Decelerations: None FHR Category: Category I Estimated Weight (gm): 3100 Presentation: Vertex Admit Comment: SROM, ? yesterday, had leaking for about 10 min then no further leaking until to day @ 1445. States active baby, denies vb, denies ctx. 24 hour urine pending, some elevated bps, normotensive now. See allergies See record for complete medical hx. Admit to Labor and Delivery Pitocin GBS negative PLANS FOR LABOR AND DELIVERY Labor and Delivery: None Pain Management: Natural Feeding Preference: Formula Benefit of Breast Feed Discussed: Yes Circumcision: Yes INFORMED CONSENT Informed Consent Obtained: Section Delivery; Risks, Benefits and Alternatives Discussed Informed Consent Obtained: Vaginal Delivery; Induction of Labor; Risks, Benefits and Alternatives Discussed Assignment: London Loza MD Signature: with User ID: [email or web address] : with User ID: [email or web address]
[2017-03-15] MEDS: VALACYCLOVIR HCL 500 MG TABLET PO SCH (23:49)
[2017-03-16] MEDS: IBUPROFEN 800 MG TABLET PO SCH ×4 (00:30→17:28)
[2017-03-16 07:21] LABS: HEMATOCRIT 24.7 % (36.0-47.0); MEAN CORPUSCULAR HEMOGLOBIN 23.8 pg (27.0-33.4); MEAN CORPUSCULAR HGB CONC 31.9 g/dL (32.0-36.0); MEAN CORPUSCULAR VOLUME 75 fl (80-97); PLATELET COUNT 164 10^3/uL (150-450); RED BLOOD COUNT 3.31 10^6/uL (3.72-5.28); RED CELL DISTRIBUTION WIDTH 20.7 % (11.5-14.0); WHITE BLOOD COUNT 9.8 10^3/uL (4.0-10.5)
[2017-03-16] MEDS: OXYCODONE-ACETAMINOPHEN 5-325 MG TABLET PO PRN ×3 (07:48→19:58)
[2017-03-16] MEDS ORDERED: FUROSEMIDE INJ/PF 20 MG/2 ML SDV IV ONE (08:32)
--- NOTE | 2017-03-16 09:48 | PDOC PROGRESS REPORT ---
Subjective-OB Subjective: Post Delivery Day: 1 26 year old. Denies any needs at this time, states pain is well controlled, lochia is stable, dasilva draining clear urine. Physical Exam (OB) Vital Signs: Temp Pulse Resp BP Pulse Ox 98.2 F 105 H 14 124/67 97 03/16/17 07:59 03/16/17 07:59 03/16/17 07:59 03/16/17 07:59 03/16/17 07:59 Intake & Output 03/15/17 03/16/17 03/17/17 06:59 06:59 06:59 Output Total 400 Balance -400 Weight 61.4 kg - PIH/Pre-Eclampsia DTR's: 2 + Clonus: Negative Headache: Absent Epigastric Pain: No Visual Changes: No - Lochia Lochia Amount: Scant < 10 ml Lochia Color: Rubra/Red - Abdomen Description: Soft, Round Hernia Present: No Fundal Description: Firm, Midline Fundal Height: u/u - u/2 Objective-Diagnostic Laboratory: 03/16/17 06:48 03/16/17 06:48 WBC 9.8 RBC 3.31 L Hgb 7.9 L D Hct 24.7 L MCV 75 L MCH 23.8 L MCHC 31.9 L RDW 20.7 H Plt Count 164 Assessment and Plan(PN) - Assessment and Plan (1) delivery delivered Is this a current diagnosis for this admission?: Yes Plan: routine post op care lasix X1 per dr. lagos (2) Acute blood loss anemia Is this a current diagnosis for this admission?: Yes Plan: ferrous sulfate increase dietary iron - Time Spent with Patient Time with patient: Less than 15 minutes Critical Time spent with patient: Less than 15 minutes Medications reviewed and adjusted accordingly: Yes - Disposition Anticipated Discharge: Home Within: within 48 hours
[2017-03-16] MEDS: DOCUSATE SODIUM 100 MG CAPSULE PO SCH ×2 (09:52→17:28)
[2017-03-16] MEDS: VALACYCLOVIR HCL 500 MG TABLET PO SCH ×2 (09:53→21:30)
[2017-03-16] MEDS: PRENATAL VITAMIN W DHA CAPSULE PO SCH (09:54)
[2017-03-16] MEDS: FERROUS SULFATE 325 MG TABLET PO SCH ×2 (12:50→17:29)
[2017-03-16 18:42] LABS: HEMOGLOBIN 7.9 g/dL (12.0-15.5)
[2017-03-17] MEDS: IBUPROFEN 800 MG TABLET PO SCH ×5 (01:24→23:08)
[2017-03-17] MEDS: OXYCODONE-ACETAMINOPHEN 5-325 MG TABLET PO PRN ×3 (01:57→23:39)
--- NOTE | 2017-03-17 09:06 | PDOC PROGRESS REPORT ---
Subjective-OB Subjective: Post Delivery Day: 2 26 year old. Denies any needs at this time, states lochia is stable, pain moderately well controlled, voiding without difficulty, passing gas, tolerating diet, feels like perineal swelling is improving. Physical Exam (OB) Vital Signs: Temp Pulse Resp BP Pulse Ox 98.0 F 88 15 117/66 100 03/17/17 08:44 03/17/17 08:44 03/17/17 08:44 03/17/17 08:44 03/17/17 08:44 Intake & Output 03/16/17 03/17/17 03/18/17 06:59 06:59 06:59 Intake Total 740 Output Total 400 2650 Balance -400 -1950 - PIH/Pre-Eclampsia DTR's: 2 + Clonus: Negative Headache: Absent Epigastric Pain: No Visual Changes: No - Dressing Removed: Yes Incision: Open Closure Type: Surgical Glue - Lochia Lochia Amount: Scant < 10 ml Lochia Color: Rubra/Red - Abdomen Description: Tender, Soft Hernia Present: No Fundal Description: Firm, Midline Fundal Height: u/u - u/2 Objective-Diagnostic Laboratory: 03/16/17 06:48 03/16/17 06:48 Hgb 7.9 L D Assessment and Plan(PN) - Assessment and Plan (1) delivery delivered Is this a current diagnosis for this admission?: Yes Plan: routine post op care (2) Acute blood loss anemia Is this a current diagnosis for this admission?: Yes Plan: ferrous sulfate increase dietary iron - Time Spent with Patient Time with patient: Less than 15 minutes Critical Time spent with patient: Less than 15 minutes Medications reviewed and adjusted accordingly: Yes - Disposition Anticipated Discharge: Home Within: within 24 hours
[2017-03-17] MEDS: PRENATAL VITAMIN W DHA CAPSULE PO SCH (09:52)
[2017-03-17] MEDS: VALACYCLOVIR HCL 500 MG TABLET PO SCH ×2 (09:52→23:08)
[2017-03-17] MEDS: DOCUSATE SODIUM 100 MG CAPSULE PO SCH ×2 (09:52→17:10)
[2017-03-17] MEDS: FERROUS SULFATE 325 MG TABLET PO SCH ×3 (09:52→16:37)
[2017-03-17] MEDS ORDERED: DIBUCAINE 1% OINTMENT 28 GM TP PRN (11:23)
[2017-03-17] MEDS ORDERED: BENZOCAINE/MENTHOL AEROSOL SPRAY 56 ML TOP PRN (11:23)
--- NOTE | 2017-03-17 17:03 | Operative Report ---
Operative Report DATE OF SURGERY: 03/15/17 PREOPERATIVE DIAGNOSIS: Arrest of Descent, 40+0ega, PPROM, POSTOPERATIVE DIAGNOSIS: DALTON delivered OPERATION: Primary [facility] SURGEON: STACEY CHINCHILLA ANESTHESIA: Epidural TISSUE REMOVED OR ALTERED: placenta and cord COMPLICATIONS: None ESTIMATED BLOOD LOSS: 600ml INTRAOPERATIVE FINDINGS: Normal bilateral tubes and ovaries, normal uterus, baby asynclitic and OP. VMI with apgars 4/7/7. Weight 6#3oz. Time of 1940. 1000ml IVF, 100ml UOP. Poor uterine tone responded with Intrauterine methergine and intrauterine pitocin. Cytotec 1000mcg given postop per rectum PROCEDURE: Anesthesia provider: [Nani Buckner CRNA, MD] Estimated blood loss: [600ml] Urine output: [100ml] IV fluids: [1000ml] Complications: [None] Specimens: [None] Indications: [26yo at 40+0ega presented for PROM and was induced for PROM. She had an uncomplicated labor course except for prolonged SROM for which Amp/ Gent was initiated. She became very tired and attempt was made to correct asynclitic OP presentation with forceps after bladder was drained and consent from parents obtained. Approximately 4 push/pulls with minimal maternal effort but head descent to +3 station from C/C/+2. Forceps were removed due to poor maternal effort and epidural was paused and patient was able to push and keep baby to + 3 station and retain progress. However, no further progress was achieved despite 4 hours of pushing. Epidural restarted and level obtained. Reviewed with patient that at this time would recommend section for arrest of descent. Patient and family agreed and the risks/benefits/ alternatives were reviewed. Throughout pushing the heart rate tracing was very reassuring. The patient desired to proceed with planned section for Arrest of Descent. ] Procedure: The patient was taken to the operating room where spinal anesthesia was obtained and found to be adequate. She was then prepped and draped in the normal sterile fashion and placed in the dorsal supine position with a leftward tilt. A Pfannenstiel skin incision was then made and carried through to the underlying layers of the fascia with the scalpel. The fascia was incised in the midline and the incision extended laterally with the Roth scissors. The superior aspect of the fascial incision was then grasped with Sarika clamps elevated and the underlying rectus muscles dissected off [bluntly]. Attention was then turned to the inferior aspect of the fascial incision which in a similar fashion was grasped, tented up with Hamzah clamps, and the rectus muscles dissected off [bluntly]. The rectus muscles were then in the midline and the peritoneum at the amount identified and entered [bluntly]. The peritoneal incision was then extended superiorly and inferiorly with good visualization of the bladder. The bladder blade was inserted and the vesicouterine peritoneum identified grasped with Norwegian pickups and entered sharply with the Metzenbaum scissors. This incision was then extended laterally with the Metzenbaum scissors and a bladder flap created digitally. The bladder blade was then reinserted and the lower uterine segment incised in a transverse fashion with the scalpel. The uterine incision was then extended bluntly. The bladder blade was removed and the 's head was delivered from OP cephalic presentation atraumatically. The nose and mouth were suctioned and the cord doubly clamped and cut. And the was handed off to waiting pediatricians. The placenta was then delivered spontaneously and the uterus exteriorized and cleared of all clots and debris. The uterine incision was then repaired with 1- 0 Vicryl in a running locked fashion. A second layer of the same suture was used to obtain hemostasis via imbrication of the initial layer. The bladder flap was then repaired with 3-0 chromic in a running fashion. The uterus was returned to the patient's abdomen and Interceed was placed overlying the uterine incision to prevent adhesions. The gutters were cleared of all clots and debris. All operative sites were noted to be hemostatic. The fascia was reapproximated with 0 Vicryl in a running fashion from each lateral edge to the midline. The skin was closed with 3-0 Monocryl in a running subcuticular fashion with overlying Dermabond for additional dressing as well as wound closure. The patient tolerated the procedure well. Sponge lap needle and instrument counts are correct times 2. 2 g of Ancef were given prior to skin incision. The patient was taken to the recovery area awake and in stable condition.
[2017-03-18] MEDS: IBUPROFEN 800 MG TABLET PO SCH (06:26)
[2017-03-18] MEDS: FERROUS SULFATE 325 MG TABLET PO SCH (09:33)
[2017-03-18] MEDS: VALACYCLOVIR HCL 500 MG TABLET PO SCH (09:34)
[2017-03-18] MEDS: PRENATAL VITAMIN W DHA CAPSULE PO SCH (09:34)
[2017-03-18] MEDS: DOCUSATE SODIUM 100 MG CAPSULE PO SCH (09:34)
[2017-03-18 10:38] VITALS: BP 129/84
--- NOTE | 2017-03-18 10:56 | PDOC PROGRESS REPORT ---
Subjective-OB Subjective: Post Delivery Day: 26 year old. Denies any needs at this time Doing better, ready to go home, hsb and mother at BS, no lesions, Physical Exam (OB) Vital Signs: Temp Pulse Resp BP Pulse Ox 97.7 F 99 14 129/84 H 99 03/18/17 10:32 03/18/17 10:32 03/18/17 10:32 03/18/17 10:32 03/18/17 10:32 Intake & Output 03/17/17 03/18/17 03/19/17 06:59 06:59 06:59 Intake Total 740 500 Output Total 2650 Balance -1910 500 - PIH/Pre-Eclampsia DTR's: 2 + Clonus: Negative Headache: Absent Epigastric Pain: No Visual Changes: No - Dressing Removed: Yes Incision: Open, Well Approximated Closure Type: Sutures - Lochia Lochia Amount: Scant < 10 ml Lochia Color: Rubra/Red - Abdomen Description: Tender, Soft Hernia Present: No Fundal Description: Firm, Midline Fundal Height: u/u - u/2 Objective-Diagnostic Laboratory: 03/16/17 06:48 Assessment and Plan(PN) - Assessment and Plan (1) delivery delivered Is this a current diagnosis for this admission?: Yes (2) Acute blood loss anemia Is this a current diagnosis for this admission?: Yes - Time Spent with Patient Time with patient: Less than 15 minutes Medications reviewed and adjusted accordingly: Yes - Disposition Anticipated Discharge: Home Within: Other - home today
--- NOTE | 2017-03-18 11:01 | PDOC DISCHARGE SUMMARY ---
Final Diagnosis Discharge Date: 03/18/17 - Final Diagnosis (1) delivery delivered Is this a current diagnosis for this admission?: Yes (2) Acute blood loss anemia Is this a current diagnosis for this admission?: Yes Discharge Data - Discharge Medication Prescriptions: Oxycodone HCl/Acetaminophen [Percocet 5-325 mg Tablet] 1 tab PO Q4HP PRN #30 tablet PRN Reason: Ferrous Sulfate [Feosol 325 mg Tablet] 325 mg PO MEALS #30 tablet Ibuprofen [Motrin 800 mg Tablet] 800 mg PO Q6 #30 tablet Home Medications: Albuterol Sulfate [Proair HFA] 2 puff PO ASDIR PRN 03/05/17 Cetirizine HCl [Zyrtec 10 mg Tablet] 10 mg PO DAILY 03/05/17 Vit 40/Iron/Folic/Dha [ Multi-Dha Softgel] 1 each PO DAILY 11/12 Ferrous Sulfate [Feosol 325 mg Tablet] 325 mg PO MEALS #30 tablet 03/18/17 Ibuprofen [Motrin 800 mg Tablet] 800 mg PO Q6 #30 tablet 03/18/17 Oxycodone HCl/Acetaminophen [Percocet 5-325 mg Tablet] 1 tab PO Q4HP PRN #30 tablet 03/18/17 Valacyclovir HCl [Valtrex 500 mg Tablet] 500 mg PO Q12 tablet 03/18/17 Gestational Age: 40 Reason(s) for Admission: PROM Procedures: NST, Ultrasound Intrapartum Procedure(s): : Low Cervical, Transverse Intrapartum Procedure Note: arrest of descent, PROM, cytotec 1000mcg per rectum for PP bleeding - Data Baby 1 Male at 1 minute: 4 at 5 minutes: 7 Weight: 2.807 kg Home with Mother: Yes Complications: No - Diagnosis Test Laboratory: Temp Pulse Resp BP Pulse Ox 97.7 F 99 14 129/84 H 99 03/18/17 10:32 03/18/17 10:32 03/18/17 10:32 03/18/17 10:32 03/18/17 10:32 03/14/17 03/14/17 03/16/17 15:23 15:55 06:48 RBC 4.69 3.31 L Hgb 11.0 L 7.9 L D Hct 34.9 L 24.7 L Urine Opiates Screen NEGATIVE - Discharge information/Instructions Discharge Activity: Activity As Tolerated, No Lifting Over 10 Pounds, No Lifting /Push/Pulling, Pelvic Rest, No tub bath Discharge Diet: As Tolerated, Regular Disposition: HOME, SELF-CARE Follow up with: [facility] in: 1, Weeks
== END 2017-03-18 12:40 | disposition home or self-care (01) | DRG 765 ==
LOC: LC 15:11 → LR 15:44 → 2S 03-15 22:42
PROVIDERS: ADMIT Student in an Organized Health Care Education/Training Program; ATTEND Student in an Organized Health Care Education/Training Program
PROC: 10D00Z1 Extraction of Products of Conception, Low, Open Approach (ICD-10-PCS; principal; 2017-03-17)
DX: O62.1 Secondary uterine inertia (principal); O98.32 Other infections with a predominantly sexual mode of transmission complicating childbirth; O98.52 Other viral diseases complicating childbirth; B00.89 Other herpesviral infection; A60.00 Herpesviral infection of urogenital system, unspecified; O99.52 Diseases of the respiratory system complicating childbirth; J45.909 Unspecified asthma, uncomplicated; Z3A.39 39 weeks gestation of pregnancy; Z37.0 Single live birth
CPT/HCPCS: 1961; 36415; 80307; 81005; 84112; 85025; 85027; 86592; 86850; 86900; 86901; 88307; C1765; J0131; J0290; J0690; J1170; J1580; J1940; J2175; J2210; J2250; J2405; J2550; J2590; J3010; J3490